=== PATIENT | male | born 1985 | race African-American/Black ===

== ENCOUNTER 2021-05-21 17:31 | Emergency (ER) | payer OTHER ==
[2021-05-21] MEDS ORDERED: KETOROLAC 15 MG/ML 1 ML VIAL IVP STA (18:54)
[2021-05-21] MEDS ORDERED: SODIUM CHLORIDE 0.9% 1,000 ML IV STA (18:54)
[2021-05-21] MEDS ORDERED: methylPREDNISolone SOD SUCCI 125 MG/2 ML VIAL IV STA (18:54)
--- NOTE | 2021-05-21 19:02 | ED ---
General Adult HPI - General Chief complaint: Dizziness Stated complaint: Dizziness Time Seen by Provider: 05/21/21 18:39 Source: patient, family, RN notes reviewed Mode of arrival: ambulatory Limitations: no limitations - History of Present Illness Initial comments: 35-year-old well-appearing male patient, alert and oriented 4, presents to the emergency room with complaints of a frontal and left temporal headache for the past 3 hours. Patient states that he also has dizziness but does not feel like the room is spinning. He does have a [employer]NCE MECH[employer]IC shunt. He states that his pain is 1 out of 10. It is aching in nature. He has had headaches in the past and migraines and usually resolves with Excedrin Migraine. He did take Excedrin Migraine around 2:00 with no relief. He has no focal neurological deficits. He denies any sick contacts or any fevers. He denies any nausea or vomiting. -: hour(s) (3) Location: head Radiation: non-radiation Quality: aching Consistency: constant Improves with: none Worsens with: none Associated Symptoms: other (dizzy) Treatments Prior to Arrival: other (Excedrin Migraine) - Related Data Allergies Allergy/AdvReac Type Severity Reaction Status Date / Time No Known Allergies Allergy Verified 05/21/21 17:37 Review of Systems ROS Statement: Those systems with pertinent positive or pertinent negative responses have been documented in the HPI. ROS Other: All systems not noted in ROS Statement are negative. Past Medical History Past Medical History: No Reported History History of Any Multi-Drug Resistant Organisms: None Reported Additional Past Surgical History / Comment(s): ORDNANCE MECH[employer]IC shunt Past Psychological History: No Psychological Hx Reported Smoking Status: Never smoker Past Alcohol Use History: None Reported Past Drug Use History: None Reported General Exam Limitations: no limitations General appearance: alert, in no apparent distress Head exam: Present: atraumatic, normocephalic, normal inspection Eye exam: Present: normal appearance, PERRL, EOMI. Absent: scleral icterus, conjunctival injection, periorbital swelling Pupils: Present: normal accommodation ENT exam: Present: normal exam, normal oropharynx, mucous membranes moist Neck exam: Present: normal inspection, full ROM. Absent: tenderness, meningismus, lymphadenopathy, thyromegaly Respiratory exam: Present: normal lung sounds bilaterally. Absent: respiratory distress, wheezes, rales, rhonchi, stridor, chest wall tenderness, accessory muscle use, decreased breath sounds, prolonged expiratory Cardiovascular Exam: Present: regular rate, normal rhythm, normal heart sounds. Absent: systolic murmur, diastolic murmur, rubs, gallop, clicks GI/Abdominal exam: Present: soft, normal bowel sounds. Absent: distended, tenderness, guarding, rebound, rigid Extremities exam: Present: full ROM, normal capillary refill. Absent: tenderness, calf tenderness Back exam: Present: full ROM. Absent: tenderness, CVA tenderness (R), CVA tenderness (L), muscle spasm, paraspinal tenderness, vertebral tenderness Neurological exam: Present: alert, oriented X3, CN II-XII intact. Absent: motor sensory deficit Expanded Patient oriented to: Present: person, place, time Cranial nerves: EOM's Intact: Normal, Gag Reflex: Normal, Tongue Deviation: Normal Cerebellar function: Finger to Nose: Normal Motor strength exam: RUE: 5, LUE: 5, RLE: 5, LLE: 5 Eye Response: (4) open spontaneously Motor Response: (6) obeys commands Verbal Response: (5) oriented Mike Total: 15 Psychiatric exam: Present: normal affect, normal mood Skin exam: Present: warm, dry, intact, normal color. Absent: rash, cyanosis, diaphoretic, petechiae, pallor Course Vital Signs 05/21/21 05/21/21 17:34 22:05 Temperature 98.1 F 97.9 F Pulse Rate 78 75 Respiratory 20 18 Rate Blood Pressure 138/90 158/96 O2 Sat by Pulse 98 97 Oximetry Medical Decision Making - Medical Decision Making Abdominal x-ray shows a right [employer]NCE MECH[employer]IC shunt without discontinuity or kinking. Electrolytes are unremarkable. There is no leukocytosis, hemoglobin and hem atocrit is within normal limits. CT brain shows right-sided ventriculostomy catheter, no hydrocephalus. Patient has no focal neurological deficits. Patient states that he does feel better with the IV fluids and medications. He is ready to be discharged home. Instructed to follow-up with his primary care doctor and return to the emergency room with any worsening symptoms. This is likely a migraine headache as he states it is similar to headaches he has had in the past. He states that he has been under a lot of stress and he relates his headaches to stress. Case discussed with Dr. Ortiz - Lab Data Result diagrams: 05/21/21 18:58 05/21/21 18:58 Lab Results 05/21/21 05/21/21 Range/Units 18:58 18:58 WBC 7.4 (3.8-10.6) k/uL RBC 4.71 (4.30-5.90) m/uL Hgb 15.0 (13.0-17.5) gm/dL Hct 44.5 (39.0-53.0) % MCV 94.6 (80.0-100.0) fL MCH 31.8 (25.0-35.0) pg MCHC 33.6 (31.0-37.0) g/dL RDW 12.4 (11.5-15.5) % Plt Count 261 (150-450) k/uL MPV 8.1 Neutrophils % 61 % Lymphocytes % 28 % Monocytes % 7 % Eosinophils % 2 % Basophils % 1 % Neutrophils # 4.5 (1.3-7.7) k/uL Lymphocytes # 2.1 (1.0-4.8) k/uL Monocytes # 0.5 (0-1.0) k/uL Eosinophils # 0.1 (0-0.7) k/uL Basophils # 0.0 (0-0.2) k/uL Sodium 140 (137-145) mmol/L Potassium 4.2 (3.5-5.1) mmol/L Chloride 104 (98-107) mmol/L Carbon Dioxide 26 (22-30) mmol/L Anion Gap 10 mmol/L BUN 14 (9-20) mg/dL Creatinine 0.94 (0.66-1.25) mg/dL Est GFR (CKD-EPI)AfAm >90 (>60 ml/min/1.73 sqM) Est GFR (CKD-EPI)NonAf >90 (>60 ml/min/1.73 sqM) Glucose 98 (74-99) mg/dL Calcium 9.6 (8.4-10.2) mg/dL Total Bilirubin 0.3 (0.2-1.3) mg/dL AST 30 (17-59) U/L ALT 25 (4-49) U/L Alkaline Phosphatase 69 (38-126) U/L Total Protein 7.4 (6.3-8.2) g/dL Albumin 4.5 (3.5-5.0) g/dL Disposition Clinical Impression: Headache Disposition: HOME SELF-CARE Condition: Good Instructions (If sedation given, give patient instructions): Tension Headache (ED) Additional Instructions: Continue taking medications as prescribed including Excedrin. Try melatonin [id number] to help you with sleep. Follow-up with the primary care doctor this week. Return to emergency room with any new or worsening symptoms including fever, worsening headache. Is patient prescribed a controlled substance at d/c from ED?: No Referrals: Ruthann Pacheco MD [Primary Care Provider] - 1-2 days Time of Disposition: 21:43
[2021-05-21 19:33] LABS: ALT 25 U/L (4-49); AST 30 U/L (17-59); African American GFR (CKD) >90 (>60 ml/min/1.73 sqM); Albumin 4.5 g/dL (3.5-5.0); Alkaline Phosphatase 69 U/L (38-126); Anion Gap 10 mmol/L; Blood Urea Nitrogen 14 mg/dL (9-20); Calcium 9.6 mg/dL (8.4-10.2); Carbon Dioxide 26 mmol/L (22-30); Chloride 104 mmol/L (98-107); Glucose 98 mg/dL (74-99); Non-African American GFR(CKD) >90 (>60 ml/min/1.73 sqM); Potassium 4.2 mmol/L (3.5-5.1); Sodium 140 mmol/L (137-145); Total Bilirubin 0.3 mg/dL (0.2-1.3); Total Protein 7.4 g/dL (6.3-8.2)
[2021-05-21 19:39] LABS: Basophils % (A) 1 %; Eosinophils # (A) 0.1 k/uL (0-0.7); Eosinophils % (A) 2 %; HCT 44.5 % (39.0-53.0); Lymphocytes # (A) 2.1 k/uL (1.0-4.8); Lymphocytes % (A) 28 %; MCH 31.8 pg (25.0-35.0); MCHC 33.6 g/dL (31.0-37.0); MCV 94.6 fL (80.0-100.0); Mean Platelet Volume 8.1; Monocytes # (A) 0.5 k/uL (0-1.0); Monocytes % (A) 7 %; Neutrophils # (A) 4.5 k/uL (1.3-7.7); Neutrophils % (A) 61 %; Platelet Count 261 k/uL (150-450); RBC 4.71 m/uL (4.30-5.90); RDW 12.4 % (11.5-15.5); WBC 7.4 k/uL (3.8-10.6)
--- NOTE | 2021-05-21 20:41 | XR ---
Result: Clinical Indication: Shunt evaluation. Comparison: None available. Technique: 2 views of the skull, 2 views of the abdomen and 2 views of the chest. Findings: There is demonstration of right ventriculoperitoneal shunt without discontinuity or kinking seen. The lungs are clear. No pleural effusion or pneumothorax. Normal cardiomediastinal silhouette. There is a nonobstructive bowel gas pattern. No acute osseous abnormality. Impression: Right [employer] shunt without discontinuity or kinking.
--- NOTE | 2021-05-21 21:32 | CT ---
EXAMINATION TYPE: CT brain wo con DATE OF EXAM: 05/21/2021 COMPARISON: None available. HISTORY: Headache. CT DLP: 1071.4 mGycm. Automated Exposure Control for Dose Reduction was Utilized. TECHNIQUE: CT scan of the head is performed without contrast. FINDINGS: There is demonstration of right frontal approach ventriculostomy catheter terminating in the left lateral ventricle. No hydrocephalus. Decompressed ventricles with slitlike appearance of the right lateral ventricle. There is no acute intracranial hemorrhage, mass effect, or midline shift id entified. The globes are intact and the visualized sinuses are clear. IMPRESSION: No acute intracranial abnormality. Right-sided ventriculostomy catheter. No hydrocephalus.
[2021-05-21 22:07] VITALS: BP 158/96; PULSE 75; RESP 18; TEMP 97.9
== END 2021-05-21 22:06 | disposition home or self-care (01) ==
LOC: EC 17:31
DX: R42 Dizziness and giddiness (principal); R51.9 Headache, unspecified
CPT/HCPCS: 99284; 96374; 96375; 96361; 36415; 80053; 85025; 70250; 71046; 74018; 70450; J2930; J1885